=== PATIENT | male | born 1980 | race Caucasian/White ===

== ENCOUNTER 2017-12-02 06:41 | Emergency (ER) | payer BC ==
[~2017-12-02] VITALS: Ht 188 cm; Wt 97.5 kg
[~2017-12-02 06:41] MED LIST: CEPH500 PO; CLIN300 PO; Cipro500 MG PO; ERYES400 PO; ERYT500 PO; Flomax0.4 MG PO; HYDACE5 PO; IBUP800; OXYACE5T PO; Percocet 5-3251 EACH PO; RANI150 PO; RXHYDACE PO; Zofran Odt4 MG SL
[2017-12-02] MEDS ORDERED: TOBRADEX ST EYE5 ML RIGHTEYE (07:40)
== END 2017-12-02 07:51 | disposition home or self-care (01) ==
LOC: ER 06:41
DX: S05.01XA Injury of conjunctiva and corneal abrasion without foreign body, right eye, initial encounter (principal); W22.8XXA Striking against or struck by other objects, initial encounter; Z88.0 Allergy status to penicillin
CPT/HCPCS: 99283